=== PATIENT | female | born 1935 | race Caucasian/White ===

== ENCOUNTER 2017-03-27 12:53 | Inpatient (IN) | payer MEDICARE ==
[~2017-03-27] VITALS: Ht 172.7 cm; Wt 69.4 kg
[~2017-03-27 12:53] MED LIST: ALAVERT10 M1 PO; ASPIRIN ADULT L81 M3 PO; AXERT PO; CALCIUM 600 +600 MG PO; ELIQUIS5 MG PO; LEXAPRO10 MG PO; LIPITOR20 M1 PO; MULTI FOR HER 50+ PO; OMEGA 31000 MG PO; SYMBICORT 80-4.5MCG; TRUBIOTICS PO
--- NOTE | 2017-03-27 13:00 | NUR ---
PT TO THE ROOM VIA WC ACCOMPANIED BY FAMILY; AMBULATORY TO BED WITH STAND BY ASSIST; PT A/O X3; PT DENIES PAIN; PT C/O SOB, FEVER, COUGH SINCE 03/22/17; PT SOB, LABORED BREATHING, O2 SAT 90% RA; O2 2L APPLIED AT THIS TIME; PT ORIENTED TO ROOM AND CALL SYSTEM; TWO UNSUCCESFUL ATTEMPTS AT IV ACCESS BY THIS NURSE; #22 GAUGE STARTED IN LFA BY Ric FRIAS RN, FIRST ATTEMPT SUCCESSFUL; PT ORIENTED TO ROOM AND CALL SYSTEM; CALL HAHN WITHIN REACH; WILL CONTINUE TO MONITOR.
[2017-03-27 14:00] VITALS: BP 136/60
[2017-03-27 14:46] LABS: HEMATOCRIT 39.6 % (37.0-47.0); HEMOGLOBIN 13.3 g/dl (12.0-16.0); IMMATURE GRANULOCYTES 0.5 % (0.0-1.0); MEAN CORPUSCULAR HGB 31.9 pG CALC (26.0-32.0); MEAN CORPUSCULAR HGB CONC 33.6 g/L CALC (32.0-36.0); NEUT# 11.97 thou/uL (2.00-7.15); RED BLOOD COUNT 4.17 mill/uL (4.20-5.60); RED CELL DISTRI WIDTH 12.8 % (11.5-15.5)
[2017-03-27 15:19] LABS: ANION GAP 18 (6-22 (CALC)); BUN 16 mg/dL (8-23); BUN/CREATININE RATIO 17 (12-20 (CALC)); CALCIUM 9.3 mg/dL (8.4-10.2); CARBON DIOXIDE 22 mmol/l (22-30); CHLORIDE 102 mmol/l (95-108); CREATININE 0.9 mg/dL (0.5-1.0); GFR 60 ML/MIN (>=60 (CALC)); GFR FOR AFR.AMER. > 60 ML/MIN (>=60 (CALC)); GLUCOSE 152 mg/dL (82-115); POTASSIUM 4.1 mmol/l (3.5-5.1); SODIUM 138 mmol/l (137-146)
[2017-03-27 15:25] VITALS: BP 147/71
--- NOTE | 2017-03-27 16:04 | NUR ---
PT C/O SOB; O2 @ 2L VIA NC; O2 SAT 87-90%; TRACEY ANAND IN TO SEE PT; ORDERS RECEIVED;
[2017-03-27] MEDS ORDERED: ALMOTRIPTAN PO (17:09)
[2017-03-27] MEDS ORDERED: DUONEB NEB (17:12)
[2017-03-27] MEDS ORDERED: SINGULAIR10 MG PO (17:12)
[2017-03-27] MEDS ORDERED: VENTOLIN HFA PO (17:13)
--- NOTE | 2017-03-27 18:11 | NUR ---
PT TOLERATING DINNER WELL; SOB WITH LITTLE EXERTION; O2 2L VIA NC, O2 SAT 91-93%; FAMILY IN ROOM; CALL HAHN WITHIN REACH;
[2017-03-27 18:30] VITALS: BP 166/82
--- NOTE | 2017-03-27 19:20 | NUR ---
PT RESTING IN BED WATCHING TV. PT DENIES ANY PAIN OR DISCOMFORT. RESP EVEN AND UNLABORED, WITH O2 IN PLACE. WHEEZES THROUGHOUT NOTED. NO DISTRESS NOTED. TELE IN PLACE. ABD SOFT, BOWEL SOUNDS PRESENT. PT STATES HAD A BM YESTERDAY. PEDAL PULSES PALPATED BILAT. IV LFA PATENT, FLUSHED WITHOUT DIFFICULTY. FREQUENT ROUNDS MADE. CALL LIGHT WITHIN REACH.
[2017-03-28] VITALS (7 sets, daily range): BP systolic 117–143; BP diastolic 60–78
--- NOTE | 2017-03-28 00:45 | NUR ---
PT APPEARS TO BE SLEEPING. RESP EVEN AND UNLABORED, O2 IN PLACE. TELE IN PLACE. CALL LIGHT WITHIN REACH.
--- NOTE | 2017-03-28 05:00 | NUR ---
PT RESTING IN BED. PT DENIES ANY PAIN OR DISCOMFORT. RESP EVEN AND UNLABORED WITH O2 IN PLACE. TELE IN PLACE. NO DISTRESS NOTED. ASSESSMENT UNCHANGED. CALL LIGHT WITHIN REACH.
--- NOTE | 2017-03-28 07:00 | NUR ---
RECEIVED BEDSIDE REPORT FROM DIA HALLMAN. RESTING IN HIGH FOWLERS, RESPS EVEN AND UNLABORED ON O2 VIA NC, TELE MONITOR IN PLACE. REPORTS FEELING BETTER THIS AM. PLAN OF CARE DISCUSSED. SAFETY PRECAUTIONS REINFORCED. BED IN LOWEST POSITION WITH WHEELS LOCKED. CALL LIGHT WITHIN REACH. WILL CONTINUE TO MONITOR.
[2017-03-28 07:03] LABS: HEMATOCRIT 37.5 % (37.0-47.0); HEMOGLOBIN 12.5 g/dl (12.0-16.0); IMMATURE GRANULOCYTES 0.7 % (0.0-1.0); MEAN CELL VOLUME 94.2 fL CALC (80.0-100.0); MEAN CORPUSCULAR HGB 31.4 pG CALC (26.0-32.0); MEAN CORPUSCULAR HGB CONC 33.3 g/L CALC (32.0-36.0); NEUT# 11.19 thou/uL (2.00-7.15); RED BLOOD COUNT 3.98 mill/uL (4.20-5.60); RED CELL DISTRI WIDTH 12.5 % (11.5-15.5)
[2017-03-28 07:17] LABS: ANION GAP 16 (6-22 (CALC)); BUN 21 mg/dL (8-23); BUN/CREATININE RATIO 23 (12-20 (CALC)); CALCIUM 9.2 mg/dL (8.4-10.2); CARBON DIOXIDE 23 mmol/l (22-30); CHLORIDE 102 mmol/l (95-108); CREATININE 0.9 mg/dL (0.5-1.0); GFR 60 ML/MIN (>=60 (CALC)); GFR FOR AFR.AMER. > 60 ML/MIN (>=60 (CALC)); GLUCOSE 206 mg/dL (82-115); MAGNESIUM 2.3 mg/dL (1.6-2.3); POTASSIUM 3.9 mmol/l (3.5-5.1); SODIUM 137 mmol/l (137-146)
--- NOTE | 2017-03-28 08:40 | NUR ---
PT ASSESSMENT COMPLETED. PT ALERT AND ORIENTED X3. SPEECH IS CLEAR. FACE SYMMETRICAL. PUPILS NOT REACTED TO LIGHT DO TO HISTORY OF CATERACT SURGERY. PT HAS STRONG UPPER AND LOWER EXTREMETIES. PT HAS STRONG APICAL, RADIAL, PEDIAL PULSES. BRISK CAPILLARY REFILL. LUNG SOUNDS EXPIRATORY WHEEZING, COURSE, RESPORATION EVEN AND UNLABORED. SKIN WARM, DRY, AND INTACT. BOWEL SOUNDS PRESENT X4. PT HAS 22 GUAGE IV LAC, IV SITE HAS NO SWELLING OR REDNESS. PT HAS NO NEEDS OR CONCERNS. SR UP X4. WHEELS LOCKED, BED IN LOWEST POSITION. CALL LIGHT WITHIN REACH. WILL CONTINUE TO MONITOR.
--- NOTE | 2017-03-28 12:15 | NUR ---
SITTING ON EDGE OF BED EATING LUNCH. RESPS EVEN AND UNLABORED ON O2 VIA NC WHILE AT REST, EXERTIONAL SHORTNESS OF BREATH NOTED, TELE MONITOR IN PLACE. DENIES PAIN OR DISCOMFORT. DR WASHBURN IN TO SEE PT, NEW ORDERS RECEIVED. CALL LIGHT WITHIN REACH. WILL CONTINUE TO MONITOR.
--- NOTE | 2017-03-28 16:12 | NUR ---
RESTING IN BED WATCHING TV, RESPS EVEN AND UNLABORED ON O2 VIA NC, TELE MONITOR IN PLACE. #22 LFA INFUSING DOXYCYCLINE WITHOUT DIFFICULTY, SITE APPEARS HEALTHY. DENIES PAIN OR DISCOMFORT. CALL LIGHT WITHIN REACH. WILL CONTINUE TO MONITOR.
--- NOTE | 2017-03-28 19:00 | NUR ---
RECEIVED CHANGE OF SHIFT REPORT FROM LEO LYONS. PATIENT LYING IN BED AND APPEARS NOT TO BE IN ANY APPARENT ACUTE DISTRESS . WILL CONTINUE TO MONITOR.
--- NOTE | 2017-03-29 | NUR ---
NO APPARENT ACUTE DISTRESS NOTED. PATIENT AMBULATED TO BATH ROMM WITH STANDBY ASSIST.
--- NOTE | 2017-03-29 04:00 | NUR ---
NO APPARENT ACUTE CHANGES NOTED IN PT'S CONDITION.
[2017-03-29 05:36] LABS: HEMATOCRIT 34.6 % (37.0-47.0); HEMOGLOBIN 11.7 g/dl (12.0-16.0); IMMATURE GRANULOCYTES 3.1 % (0.0-1.0); MEAN CELL VOLUME 93.5 fL CALC (80.0-100.0); MEAN CORPUSCULAR HGB 31.6 pG CALC (26.0-32.0); MEAN CORPUSCULAR HGB CONC 33.8 g/L CALC (32.0-36.0); NEUT# 16.01 thou/uL (2.00-7.15); RED BLOOD COUNT 3.7 mill/uL (4.20-5.60); RED CELL DISTRI WIDTH 12.4 % (11.5-15.5)
[2017-03-29 05:38] VITALS: BP 178/90
[2017-03-29 06:00] LABS: ANION GAP 16 (6-22 (CALC)); BUN 23 mg/dL (8-23); BUN/CREATININE RATIO 27 (12-20 (CALC)); CALCIUM 9.1 mg/dL (8.4-10.2); CARBON DIOXIDE 22 mmol/l (22-30); CHLORIDE 102 mmol/l (95-108); CREATININE 0.8 mg/dL (0.5-1.0); GFR > 60 ML/MIN (>=60 (CALC)); GFR FOR AFR.AMER. > 60 ML/MIN (>=60 (CALC)); GLUCOSE 140 mg/dL (82-115); MAGNESIUM 2.1 mg/dL (1.6-2.3); POTASSIUM 4.5 mmol/l (3.5-5.1); SODIUM 135 mmol/l (137-146)
--- NOTE | 2017-03-29 07:00 | NUR ---
RECEIVED BEDSIDE REPORT FORM ELISE BAILEY. RESTING IN SEMI FOWLERS POSITION WITH EYES OPEN. REPORTS "NOT SLEEPING ALL NIGHT FROM COUGHING." RESPS EVEN AND UNLABORED ON O2 VIA NC, TELE MONITOR IN PLACE. NON PRODUCTIVE COUGH CONTINUES. WILL MEDICATE PER MAR. PLAN OF CARE DISCUSSED, SAFETY PRECAUTIONS REINFORCED. BED IN LOWEST POSITION WITH WHEELS LOCKED. CALL LIGHT WITHIN REACH. ENCOURAGED PT TO CALL FOR ANY NEEDS.
[2017-03-29 07:32] VITALS: BP 176/84
[2017-03-29 08:59] VITALS: BP 132/72
--- NOTE | 2017-03-29 09:40 | NUR ---
PHYSICAL THERAPY IN WITH PT.
--- NOTE | 2017-03-29 10:01 | NUR ---
SEEN PT SITTING IN THE BED WITH SOB. PT REFUSED TREATMENT. STATES SHE FEELS "SO WORN OUT" TODAY SHE WAS NOT ABLE TO GET ENOUGH SLEEP LAST NIGHT. CHECKED SPO2, WAS AT 92% WITH 2L OF O2 VIA NASAL CANNULA.
[2017-03-29 11:00] VITALS: BP 166/88
--- NOTE | 2017-03-29 12:00 | NUR ---
SITTING ON EDGE OF BED EATING LUNCH. FAMILY AT BEDSIDE. RESPS EVEN AND UNLABORED ON O2 VIA NC, EXERTIONAL SHORTNESS OF BREATH NOTED. DENIES PAIN OR DISCOMFORT. CALL LIGHT WITHIN REACH. WILL CONTINUE TO MONITOR.
--- NOTE | 2017-03-29 13:20 | NUR ---
DR WASHBURN IN WITH PT, NEW ORDERS RECEIVED.
[2017-03-29 15:57] VITALS: BP 135/74
--- NOTE | 2017-03-29 16:00 | NUR ---
IN HIGH FOWLERS. VISITOR AT BEDSIDE. REPORTS FEELING BETTER THIS AFTERNOON. CALL LIGHT WITHIN REACH.
--- NOTE | 2017-03-29 16:43 | NUR ---
Talked to patient today about her medical conditions and her medications. Pt. stated that guaifenesin helping her to loosen her mucus and reduce her cough symptoms. Pt. reported no side effects with her two antibiotics aztreonam and doxycycline. Discussed about side effects of her other medications include apixaban and methylprednisolone. Pt. reported to experience some minor hand shaking with solu-medrol but this is not her main concern. Pt. reported that her systolic bp today is lower than her regular bp, and she did not take apresoline for bp medication. Pt. said not have any side effects with other medications. Pt. did not have questions to the pharmacy at this time.
--- NOTE | 2017-03-29 19:15 | NUR ---
RECEIVED CHANGE OF SHIFT REPORT FROM LEO LYONS. PATIENT SITTING UP AT BEDSIDE AND APPEARS NOT TO BE IN ANY APPARENT ACUTE DISTRESS OR DISCOMFORT, PATIENT STATED "I'M FEELING MUCH BETTER, THEY MIGHT SEND ME HOME TOMORROW" WILL CONTINUE TO MONITOR.
[2017-03-29 20:26] LABS: URINE BILIRUBIN - DIPSTICK NEGATIVE (NEGATIVE); URINE BLOOD DIPSTICK NEGATIVE (NEGATIVE); URINE COLOR YELLOW; URINE GLUCOSE - DIPSTICK NEGATIVE (NEGATIVE); URINE KETONE NEGATIVE (NEGATIVE); URINE NITRITE - DIPSTICK NEGATIVE (Negative); URINE PH 6.5 (4.5-8.0); URINE PROTEIN - DIPSTICK 30 mg/dL (NEG-TRACE); URINE UROBILINOGEN - DIPSTICK 0.2 E.U./dL (0.2)
[2017-03-29 20:30] VITALS: BP 142/79
[2017-03-29 20:30] LABS: URINE CLARITY HAZY; URINE LEUK ESTERASE SMALL (NEGATIVE)
[2017-03-29 20:36] LABS: URINE SQUAMOUS EPITHELIAL CELL FEW EPI/hpf (0-FEW)
--- NOTE | 2017-03-29 22:00 | NUR ---
PATIENT REQUESTED NOT TO BE AWAKENED AT MIDNIGHT FOR VITAL SIGNS. PT STATED "I'M GOING HOME TOMORROW AND I WANT TO SLEEP"
--- NOTE | 2017-03-30 | NUR ---
PT RESTING QUIETLY IN BED. RESP. EVEN AND NON-LABORED. NO APPARENT ACUTE DISTRESS NOTED
[2017-03-30 04:00] VITALS: BP 173/89
--- NOTE | 2017-03-30 04:00 | NUR ---
NO APPARENT ACUTE CHANGES NOTED IN PT'S CONDITION.
[2017-03-30 06:36] LABS: HEMATOCRIT 36.7 % (37.0-47.0); MEAN CELL VOLUME 94.6 fL CALC (80.0-100.0); MEAN CORPUSCULAR HGB 30.9 pG CALC (26.0-32.0); MEAN CORPUSCULAR HGB CONC 32.7 g/L CALC (32.0-36.0); NEUT# 14.46 thou/uL (2.00-7.15); RED BLOOD COUNT 3.88 mill/uL (4.20-5.60); RED CELL DISTRI WIDTH 12.8 % (11.5-15.5)
[2017-03-30 06:55] LABS: ANION GAP 16 (6-22 (CALC)); BUN 22 mg/dL (8-23); BUN/CREATININE RATIO 26 (12-20 (CALC)); CALCIUM 9.3 mg/dL (8.4-10.2); CARBON DIOXIDE 25 mmol/l (22-30); CHLORIDE 104 mmol/l (95-108); CREATININE 0.8 mg/dL (0.5-1.0); GFR > 60 ML/MIN (>=60 (CALC)); GFR FOR AFR.AMER. > 60 ML/MIN (>=60 (CALC)); GLUCOSE 94 mg/dL (82-115); MAGNESIUM 2.1 mg/dL (1.6-2.3); POTASSIUM 4.8 mmol/l (3.5-5.1); SODIUM 140 mmol/l (137-146)
--- NOTE | 2017-03-30 07:00 | NUR ---
SHIFT CHANGE REPORT FROM JENNY OLIVARES SLEEPING, BREATHING EVEN AND NON-LABORED, NO SIGN DISCOMFORT, AWAKENED TO LIGHT VERBAL STIMULI, ORIENTED, O2 @ 2.5L VIA NC IN PLACE, NO C/O DISCOMFORT, CALL HAHN IN REACH.
[2017-03-30 07:01] LABS: IMMATURE GRANULOCYTES 9.3 % (0.0-1.0)
[2017-03-30 09:16] VITALS: BP 132/67
--- NOTE | 2017-03-30 11:25 | NUR ---
Pt. found sitting in bed and in agreement to participate with physical therapy for gait training, gait belt and non skid socks applied prior to doing so. Pt. ambulated x25 feet in room using RW and with CGA x1 on room air. Steady gait observed O2 sats dropped from 93% to 88%. Pt. took a seated break, portable O2 was obtained and set at 2L via NC. Pt. then ambulated x75 feet using RW and potable O2 with light CGA x1. Pt. returned to sitting in bed O2 sats maintained above 90% with with O2 at 2L. Call button reviewed and left within reach, bedside table also left within reach. Pt. left resting comfortably without complaints.
--- NOTE | 2017-03-30 12:00 | NUR ---
AMBULATES IN ROOM AND TO BR INDEPENDENTLY, SITTING UP IN RECLINER AT THIS TIME, NO C/O DISCOMFORT, WILL CONTINUE TO MONITOR.
[2017-03-30] MEDS ORDERED: PREDNISONE10 MG PO (15:25)
[2017-03-30] MEDS ORDERED: DOXYCYCL HYC100 MG PO (15:25)
--- NOTE | 2017-03-30 15:56 | NUR ---
SITTING ON SIDE OF BED AT THIS ITME, AMBULATED HALLWAY WITH NURSING STAFF FOR O2 SATURATION TEST, MAINTAINED LEVELS ABOVE 90%, MEDICAL STAFF INFORMED FOR D/C PLANS.
[2017-03-30 16:00] VITALS: BP 134/74
--- NOTE | 2017-03-30 16:29 | NUR ---
Talked to patient before doctor signed a discharge order. Discussed with her medications that she is on and side effects with these medications. Pt. reported not experience any side effects with her Eliquis for atrial fibrillation. Pt. said her cough symptoms are improving with guaifenesin. She complained about temazepam that did not help her insomnia made her throwing- up and wake up in middle of the night yesterday. Pt. reported not experience any side effects with other medications. She has no diarrhea problems with aztreonam and doxycycline and has no other side effects. Pt. has no other questions to pharmacy at this time.
--- NOTE | 2017-03-30 17:51 | NUR ---
Discharge instructions given. Patient verbalizes understanding of same. Discharged in stable condition via Wheelchair to Home with family. All belongings sent with pt.
== END 2017-03-30 17:50 | disposition home or self-care (01) | DRG 190 ==
LOC: MS2 12:53
PROVIDERS: Nurse Practitioner Family; ADMIT Internal Medicine; ATTEND Internal Medicine
DX: J44.0 Chronic obstructive pulmonary disease with (acute) lower respiratory infection (principal); J18.9 Pneumonia, unspecified organism; J44.1 Chronic obstructive pulmonary disease with (acute) exacerbation; E78.5 Hyperlipidemia, unspecified; I10 Essential (primary) hypertension; K58.9 Irritable bowel syndrome, unspecified; I48.2 Chronic atrial fibrillation; F17.210 Nicotine dependence, cigarettes, uncomplicated; Z79.01 Long term (current) use of anticoagulants; Z88.8 Allergy status to other drugs, medicaments and biological substances

== ENCOUNTER 2017-11-14 05:59 | Day surgery (SDC) | payer MEDICARE ==
[~2017-11-14] VITALS: Ht 172.7 cm; Wt 68.5 kg
[~2017-11-14 05:59] MED LIST changes: +ALMOTRIPTAN PO; +CLARITIN10 M2 PO; +DOXYCYCL HYC100 MG PO; +DUONEB NEB; +PREDNISONE10 MG PO; +PREMARIN0.625 MG/G; +SINGULAIR10 MG PO; +VENTOLIN HFA PO; +VERAPAMIL180 M1 PO
[2017-11-14 08:11] VITALS: BP 124/70
== END 2017-11-14 08:55 | disposition home or self-care (01) ==
LOC: ORM 05:59
PROVIDERS: ATTEND Anesthesiology Pain Medicine
PROC: 3E0R33Z Introduction of Anti-inflammatory into Spinal Canal, Percutaneous Approach (ICD-10-PCS; principal; 2017-11-14)
PROC: 3E0R3BZ Introduction of Anesthetic Agent into Spinal Canal, Percutaneous Approach (ICD-10-PCS; 2017-11-14)
DX: M46.1 Sacroiliitis, not elsewhere classified (principal)

== ENCOUNTER 2017-11-28 07:29 | Day surgery (SDC) | payer MEDICARE ==
[~2017-11-28] VITALS: Ht 172.7 cm; Wt 68.0 kg
[2017-11-28 10:14] VITALS: BP 198/88
== END 2017-11-28 10:06 | disposition home or self-care (01) ==
LOC: ORM 07:29
PROVIDERS: ATTEND Anesthesiology Pain Medicine
PROC: 3E0R33Z Introduction of Anti-inflammatory into Spinal Canal, Percutaneous Approach (ICD-10-PCS; principal; 2017-11-28)
PROC: 3E0R3BZ Introduction of Anesthetic Agent into Spinal Canal, Percutaneous Approach (ICD-10-PCS; 2017-11-28)
DX: M46.1 Sacroiliitis, not elsewhere classified (principal)

== ENCOUNTER → 2018-05-15 | Outpatient (REF) ==
[~2018-05-15] MED LIST changes: +LIDODERM5 % EX; +TRAMADOL HCL50 MG PO
== END | disposition home or self-care (01) | DRG 642 ==
LOC: LAB 09:51
PROVIDERS: ATTEND Nurse Practitioner
DX: E78.49 Other hyperlipidemia (principal); I10 Essential (primary) hypertension

== ENCOUNTER 2022-03-07 14:56 | Emergency (ER) | payer MEDICARE ==
[~2022-03-07] VITALS: Ht 172.7 cm; Wt 72.0 kg
[2022-03-07] VITALS (17 sets, daily range): BP systolic 160–243; BP diastolic 79–119
[~2022-03-07 14:56] MED LIST changes: +AXERT; +FLECAINIDE50 MG PO; +FLONASE AL50 MCG/ACT; +MAGNESIUM CITRATE; +PROAIR HFA IN; +PROBIOTI2; +PROLIA60 MG/ML SC; +SPIRIVA HANDIHALER IN
[2022-03-07] MEDS ORDERED: DILAUDID2 MG PO (18:49)
[2022-03-07] MEDS ORDERED: PREDNISONE10 MG PO (18:49)
[2022-03-07] MEDS ORDERED: METHOCARBAMOL500 MG PO (18:49)
== END 2022-03-07 19:13 | disposition home or self-care (01) ==
LOC: ED 14:56
DX: M47.26 Other spondylosis with radiculopathy, lumbar region (principal); I10 Essential (primary) hypertension; J43.9 Emphysema, unspecified; E78.00 Pure hypercholesterolemia, unspecified; M81.0 Age-related osteoporosis without current pathological fracture

== ENCOUNTER 2022-03-19 17:42 | Emergency (ER) | payer MEDICARE ==
[~2022-03-19] VITALS: Ht 172.7 cm; Wt 71.4 kg
[2022-03-19] VITALS (12 sets, daily range): BP systolic 153–195; BP diastolic 88–103
[~2022-03-19 17:42] MED LIST changes: +DILAUDID2 MG PO; +METHOCARBAMOL500 MG PO
[2022-03-19] MEDS ORDERED: DILAUDID2 MG PO (22:24)
== END 2022-03-19 22:42 | disposition home or self-care (01) ==
LOC: ED 17:42
DX: M54.16 Radiculopathy, lumbar region (principal); I10 Essential (primary) hypertension; J43.9 Emphysema, unspecified; E78.00 Pure hypercholesterolemia, unspecified

== ENCOUNTER 2022-04-13 17:50 | Observation (INO) | payer MEDICARE ==
[~2022-04-13] VITALS: Ht 172.7 cm; Wt 77.0 kg
[2022-04-13] VITALS (8 sets, daily range): BP systolic 128–180; BP diastolic 76–100
[2022-04-13 18:18] LABS: BASO% 0.4 % (0-3); EOS% 2.9 % (0-8); HEMATOCRIT 37.4 % (37.0-47.0); HEMOGLOBIN 11.8 g/dl (12.0-16.0); IMMATURE GRANULOCYTES 0.4 % (0.0-5.0); LYMPH% 21.7 % (15-41); MEAN CELL VOLUME 94.7 fL CALC (80.0-100.0); MEAN CORPUSCULAR HGB 29.9 pG CALC (26.0-32.0); MEAN CORPUSCULAR HGB CONC 31.6 g/dL CAL (32.0-36.0); MONO% 12.6 % (2-13); NEUT# 4.48 thou/uL (2.00-7.15); RED BLOOD COUNT 3.95 mill/uL (4.20-5.60); RED CELL DISTRI WIDTH 13.5 % (11.5-15.5)
[2022-04-13 18:31] LABS: ALBUMIN 3.4 g/dL (3.2-5.0); BILIRUBIN, TOTAL 0.4 mg/dL (0.02-1.3); CREATININE 1.1 mg/dL (0.5-1.0); POTASSIUM 3.9 mmol/l (3.5-5.1); TOTAL PROTEIN 6.4 g/dL (6.3-8.2)
[2022-04-13] MEDS ORDERED: CARISOPRODOL350 MG PO (21:01)
[2022-04-13] MEDS ORDERED: PREGABALIN75 MG PO (21:02)
[2022-04-13] MEDS ORDERED: TRAMADOL HCL50 MG PO (21:16)
[2022-04-14] VITALS (10 sets, daily range): BP systolic 125–175; BP diastolic 70–85
[2022-04-14 05:18] LABS: BASO% 0.2 % (0-3); HEMATOCRIT 37.3 % (37.0-47.0); IMMATURE GRANULOCYTES 0.4 % (0.0-5.0); LYMPH% 14.6 % (15-41); MEAN CELL VOLUME 94.2 fL CALC (80.0-100.0); MEAN CORPUSCULAR HGB 30.3 pG CALC (26.0-32.0); MEAN CORPUSCULAR HGB CONC 32.2 g/dL CAL (32.0-36.0); MONO% 1.1 % (2-13); NEUT# 3.9 thou/uL (2.00-7.15); NEUT% 83.7 % (42-76); RED BLOOD COUNT 3.96 mill/uL (4.20-5.60); RED CELL DISTRI WIDTH 13.1 % (11.5-15.5)
[2022-04-14 05:37] LABS: ALBUMIN 3.3 g/dL (3.2-5.0); ALKALINE PHOSPHATASE 87 u/l (38-126); BILIRUBIN, TOTAL 0.3 mg/dL (0.02-1.3); BUN 18 mg/dL (8-23); BUN/CREATININE RATIO 18 (12-20 (CALC)); CARBON DIOXIDE 27 mmol/l (22-30); CHLORIDE 102 mmol/l (95-108); GFR FOR AFR.AMER. > 60 ML/MIN (>=60 (CALC)); GFR OTHER RACES 53 ML/MIN (>=60 (CALC)); SGOT/AST 18 u/l (9-36); SODIUM 134 mmol/l (137-146); TOTAL PROTEIN 5.9 g/dL (6.3-8.2)
[2022-04-14 05:39] LABS: ANION GAP 10 (6-22 (CALC)); POTASSIUM 4.6 mmol/l (3.5-5.1)
[2022-04-14 23:11] LABS: URINE BILIRUBIN - DIPSTICK NEGATIVE (NEGATIVE); URINE BLOOD DIPSTICK NEGATIVE (NEGATIVE); URINE COLOR YELLOW; URINE GLUCOSE - DIPSTICK NEGATIVE (NEGATIVE); URINE KETONE NEGATIVE (NEGATIVE); URINE LEUK ESTERASE NEGATIVE (NEGATIVE); URINE PH 5.5 (4.5-8.0); URINE PROTEIN - DIPSTICK NEGATIVE (NEG-TRACE); URINE SPECIFIC GRAVITY >=1.030; URINE UROBILINOGEN - DIPSTICK 0.2 E.U./dL (0.2)
[2022-04-14 23:13] LABS: URINE NITRITE - DIPSTICK NEGATIVE (Negative)
[2022-04-15] VITALS (9 sets, daily range): BP systolic 127–156; BP diastolic 69–86
[2022-04-15 04:39] LABS: BASO% 0.1 % (0-3); HEMOGLOBIN 11.6 g/dl (12.0-16.0); IMMATURE GRANULOCYTES 0.3 % (0.0-5.0); LYMPH% 8.5 % (15-41); MEAN CELL VOLUME 92.3 fL CALC (80.0-100.0); MEAN CORPUSCULAR HGB 29.7 pG CALC (26.0-32.0); MEAN CORPUSCULAR HGB CONC 32.2 g/dL CAL (32.0-36.0); MONO% 2.3 % (2-13); NEUT# 10.75 thou/uL (2.00-7.15); NEUT% 88.8 % (42-76); RED BLOOD COUNT 3.9 mill/uL (4.20-5.60); RED CELL DISTRI WIDTH 13.1 % (11.5-15.5)
[2022-04-15 04:48] LABS: ALBUMIN 3.4 g/dL (3.2-5.0); BILIRUBIN, TOTAL 0.2 mg/dL (0.02-1.3); CREATININE 1.1 mg/dL (0.5-1.0); POTASSIUM 4.9 mmol/l (3.5-5.1); TOTAL PROTEIN 6.2 g/dL (6.3-8.2)
[2022-04-16] VITALS (8 sets, daily range): BP systolic 127–163; BP diastolic 66–85
[2022-04-16 04:56] LABS: HEMATOCRIT 35.2 % (37.0-47.0); HEMOGLOBIN 11.1 g/dl (12.0-16.0); MEAN CELL VOLUME 93.4 fL CALC (80.0-100.0); MEAN CORPUSCULAR HGB 29.4 pG CALC (26.0-32.0); MEAN CORPUSCULAR HGB CONC 31.5 g/dL CAL (32.0-36.0); RED BLOOD COUNT 3.77 mill/uL (4.20-5.60); RED CELL DISTRI WIDTH 13.1 % (11.5-15.5)
[2022-04-16 05:09] LABS: ALBUMIN 3.4 g/dL (3.2-5.0); CREATININE 1.2 mg/dL (0.5-1.0); MAGNESIUM 2.2 mg/dL (1.6-2.3); TOTAL PROTEIN 6.1 g/dL (6.3-8.2)
[2022-04-16 05:16] LABS: BILIRUBIN, TOTAL 0.1 mg/dL (0.02-1.3); POTASSIUM 5.2 mmol/l (3.5-5.1)
[2022-04-17 01:57] VITALS: BP 165/91
[2022-04-17 04:57] LABS: HEMOGLOBIN 10.6 g/dl (12.0-16.0); MEAN CELL VOLUME 93.5 fL CALC (80.0-100.0); MEAN CORPUSCULAR HGB CONC 32.1 g/dL CAL (32.0-36.0); RED BLOOD COUNT 3.53 mill/uL (4.20-5.60)
[2022-04-17 05:09] VITALS: BP 164/85
[2022-04-17 05:12] LABS: ALKALINE PHOSPHATASE 67 u/l (38-126); ANION GAP 7 (6-22 (CALC)); BILIRUBIN, TOTAL 0.2 mg/dL (0.02-1.3); BUN 34 mg/dL (8-23); BUN/CREATININE RATIO 35 (12-20 (CALC)); CARBON DIOXIDE 27 mmol/l (22-30); CHLORIDE 103 mmol/l (95-108); GFR FOR AFR.AMER. > 60 ML/MIN (>=60 (CALC)); GFR OTHER RACES 53 ML/MIN (>=60 (CALC)); MAGNESIUM 2.1 mg/dL (1.6-2.3); POTASSIUM 5.1 mmol/l (3.5-5.1); SGOT/AST 17 u/l (9-36); SODIUM 132 mmol/l (137-146); TOTAL PROTEIN 5.4 g/dL (6.3-8.2)
[2022-04-17 07:06] VITALS: BP 162/82
[2022-04-17 07:08] VITALS: BP 162/82
[2022-04-17] MEDS ORDERED: DILAUDID2 MG PO (10:48)
[2022-04-17] MEDS ORDERED: PREGABALIN75 MG PO (10:48)
[2022-04-17] MEDS ORDERED: PREDNISONE10 MG PO (10:48)
[2022-04-17 10:51] VITALS: BP 137/78
== END 2022-04-17 14:29 ==
LOC: ED 17:50 → ED-I 20:30 → ED 20:43 → MS2 20:44
PROVIDERS: Emergency Medicine; Nurse Practitioner Family; ADMIT Internal Medicine; ATTEND Internal Medicine
DX: M80.08XA Age-related osteoporosis with current pathological fracture, vertebra(e), initial encounter for fracture (principal); I10 Essential (primary) hypertension; J43.9 Emphysema, unspecified; I48.0 Paroxysmal atrial fibrillation; K58.2 Mixed irritable bowel syndrome; E78.00 Pure hypercholesterolemia, unspecified; R33.9 Retention of urine, unspecified; Z60.2 Problems related to living alone; Z88.3 Allergy status to other anti-infective agents; Z98.1 Arthrodesis status; Z96.82 Presence of neurostimulator; Z79.01 Long term (current) use of anticoagulants; Z20.822 Contact with and (suspected) exposure to COVID-19
CPT/HCPCS: J1650

== ENCOUNTER 2022-05-14 15:09 | Inpatient (IN) | payer MEDICARE ==
[~2022-05-14] VITALS: Ht 172.7 cm; Wt 75.3 kg
[~2022-05-14 15:09] MED LIST changes: +CARISOPRODOL350 MG PO; +PREGABALIN75 MG PO
--- NOTE | 2022-05-14 15:09 | NUR ---
PT ARRIVED VIA EMS, C/O SOB
[2022-05-14 15:16] VITALS: BP 119/63
[2022-05-14 15:30] VITALS: BP 99/57
[2022-05-14 16:00] VITALS: BP 105/57
[2022-05-14] MEDS ORDERED: BREO ELLIPTA 101 INH (16:20)
[2022-05-14] MEDS ORDERED: BUDESONID1 IN (16:54)
--- NOTE | 2022-05-14 16:54 | NUR ---
PT IN ROOM WITH VISITOR, VISITOR LEFT ROOM TO ALERT NURSE THAT PT HAD TO GO TO THE BATHROOM. NURSE WHEELED PT TO BATHROOM, PT HAD A BOWEL MOVEMENT IN UNDERWEAR AND BEDDING. REPLACED UNDERWEAR WITH MESH UNDERWEAR. PT HAD NONBLANCHING WOUND TO BUTTOCKS AND BLEEDING AFTER BEING CLEANED WITH BOWEL MOVEMENT. PT BED CLEANED WITH NEW LINENS, PT PLACED ON NEW NC ON 6L NC.
[2022-05-14 17:00] VITALS: BP 117/62
--- NOTE | 2022-05-14 17:04 | NUR ---
PLACED BEDSIDE COMMODE WITH PT, PT ON BEDSIDE COMMODE NOW WITH VISITOR
[2022-05-14 17:30] VITALS: BP 111/62
[2022-05-14 18:05] LABS: BASO% 0.1 % (0-3); IMMATURE GRANULOCYTES 0.5 % (0.0-5.0); LYMPH% 3.2 % (15-41); MEAN CELL VOLUME 92.7 fL CALC (80.0-100.0); MEAN CORPUSCULAR HGB 28.4 pG CALC (26.0-32.0); MEAN CORPUSCULAR HGB CONC 30.7 g/dL CAL (32.0-36.0); NEUT# 17.22 thou/uL (2.00-7.15); NEUT% 93.2 % (42-76); RED BLOOD COUNT 4.22 mill/uL (4.20-5.60); RED CELL DISTRI WIDTH 14.6 % (11.5-15.5)
[2022-05-14 18:14] LABS: HEMATOCRIT 39.1 % (37.0-47.0)
[2022-05-14 18:20] LABS: CREATININE 1.2 mg/dL (0.5-1.0)
[2022-05-14 18:21] LABS: ALBUMIN 4.1 g/dL (3.2-5.0); BILIRUBIN, TOTAL 1.1 mg/dL (0.02-1.3); POTASSIUM 3.7 mmol/l (3.5-5.1); TOTAL PROTEIN 7.2 g/dL (6.3-8.2)
[2022-05-14] MEDS ORDERED: CALCIUM 600600 MG (18:22)
[2022-05-14] MEDS ORDERED: DOXYCYCLINE100 MG (18:22)
[2022-05-14] MEDS ORDERED: FERROUS SULF325 M2 PO (18:22)
[2022-05-14] MEDS ORDERED: FLECAINIDE50 MG PO (18:23)
[2022-05-14] MEDS ORDERED: LASIX 40 MG TAB40 MG PO (18:23)
[2022-05-14] MEDS ORDERED: HYDROMORPHONE HC2 MG PO (18:24)
[2022-05-14] MEDS ORDERED: IPRATROPIU0.5 MG/3 M IN (18:25)
[2022-05-14 18:29] LABS: INTERNATIONAL NORMALIZED RATIO 1.1 RATIO (0.7-1.3); PROTHROMBIN TIME 10.6 SECONDS (9.0-12.5)
[2022-05-14] MEDS ORDERED: LISINOPRIL20 M1 PO (18:39)
[2022-05-14] MEDS ORDERED: [UNRECOGNIZED DRUG - OTHER] (18:41)
[2022-05-14] MEDS ORDERED: MAGNESIUM CITR100 M1 (18:41)
--- NOTE | 2022-05-14 20:18 | NUR ---
PT IN ROOM. NO DISTRESS NOTED, PT VISITOR WENT TO GO GET FOOD FOR PT
--- NOTE | 2022-05-14 21:55 | NUR ---
REPORT GIVEN TO LEO PETERS. CARE RELINQUISHED
[2022-05-14 23:37] VITALS: BP 143/102
--- NOTE | 2022-05-14 23:41 | NUR ---
PT ARRIVED TO UNIT VIA STRETCHER - UPON ARRIVAL PT TO BE FOUND ALERT TO SELF - BOTTOM BLEEDING FROM EXCORIATION, PT SITTING IN OLD STOOL AND URINE - PT CLEANED BY CORRESPONDENCE REPRESENTATIVE AND NURSE AND BARRIER CREAM APPLIED WELL A BRIEF - PT BP IS ELEVATED - WILL GIVE AM DOSE OF LISINOPRIL EARLY TO RECTIFY PT HAS NO PRN ORDERED - PT DENIES ANY NEEDS OTHER THAN SLEEP - WILL ATTEMPT ADMSSION BUT PT IS A POOR HISTORIAN SHE CURRENTLY HAS NO IDEA WHERE SHE IS - PT GIVEN CALL LIGHT - FALL PRECAUTIONS IN PLACE - WILL MONITOR
[2022-05-15] VITALS (8 sets, daily range): BP systolic 93–136; BP diastolic 41–75
--- NOTE | 2022-05-15 00:05 | NUR ---
UNABLE TO GIVE AM DOSE LISINOPRIL IT IS NOT AVAILABLE TO PULL - NOTIFIED DERAY OF NEED FOR PRN MED FOR BP
--- NOTE | 2022-05-15 00:24 | NUR ---
RECEIVED ORDERS FROM MD FOLLOWS, HYDRALAZINE 10MG Q6H PRN FOR SYSTOLIC >160 AND DIASTOLIC >90 - WILL FOLLOW PARAMETERS
--- NOTE | 2022-05-15 04:19 | NUR ---
PT OBSERVED IN BED WITH EYES CLOSED - CALL LIGHT IN REACH
[2022-05-15 05:09] LABS: BASO% 0.1 % (0-3); HEMOGLOBIN 10.2 g/dl (12.0-16.0); IMMATURE GRANULOCYTES 0.5 % (0.0-5.0); LYMPH% 7.8 % (15-41); MEAN CELL VOLUME 93.1 fL CALC (80.0-100.0); MEAN CORPUSCULAR HGB 29.5 pG CALC (26.0-32.0); MEAN CORPUSCULAR HGB CONC 31.7 g/dL CAL (32.0-36.0); MONO% 3.5 % (2-13); NEUT# 13.18 thou/uL (2.00-7.15); NEUT% 88.1 % (42-76); RED BLOOD COUNT 3.46 mill/uL (4.20-5.60); RED CELL DISTRI WIDTH 14.5 % (11.5-15.5)
[2022-05-15 05:13] LABS: HEMATOCRIT 32.2 % (37.0-47.0)
[2022-05-15 05:23] LABS: CREATININE 1.1 mg/dL (0.5-1.0)
[2022-05-15 05:28] LABS: ALBUMIN 2.9 g/dL (3.2-5.0); BILIRUBIN, TOTAL 0.6 mg/dL (0.02-1.3); TOTAL PROTEIN 5.2 g/dL (6.3-8.2)
--- NOTE | 2022-05-15 09:00 | NUR ---
RN AT BEDSIDE FOR SHIFT HANDOFF/ASSESSMENT. PT A/O X2 WITH INTERMITTENT CONFUSION. NO ACUTE DISTRESS NOTED AT THIS TIME. PLAN OF CARE REVIEWED WITH PT WITH EXTENSIVE MEDICATION EDUCATION PROVIDED. PT VERBALIZES UNDERSTANDING. CALL LIGHT AND PERSONAL BELONGINGS WITHIN REACH; WILL CONTINUE TO MONITOR.
--- NOTE | 2022-05-15 19:44 | NUR ---
PATIENT STATED FEELING BETTER REPORTS NO PAIN. UPDATED SON ON PATIENTS CONDITION WITH PATIENT'S CONSENT.
--- NOTE | 2022-05-15 20:00 | NUR ---
RECIEVED REPORT FROM NURSE ENRIQUE. PATIENT ALERT ORIENTED, HAVING NONE PRODUCTIVE COUGH HOOKED ON TELEMETRY SR WITH 1ST [id number], ON CONTINUOUS O2 @ 3LPM VIA NC, NOTED DIMINISHES LUNG SOUNDS ON BASES, BLE EDEMA +2 WEAK PEDAL PULSE CALL LIGHT IN REACH.
--- NOTE | 2022-05-16 | NUR ---
PATIENT RESTING IN BED, REMAINS ON O2 @ 3LPM VIA NC, DUE SOLU MEDROL GIVEN.
--- NOTE | 2022-05-16 04:00 | NUR ---
PATEINT INCONTINENT OF BOTH BOWEL AND BLADDER, PERINEAL CARE DONE, NEW PUREWICK IN PLACE, BARRIER CREAM APPLIED TO BUTTOCKS.
[2022-05-16 04:13] VITALS: BP 125/76
[2022-05-16 05:33] LABS: BASO% 0.1 % (0-3); HEMATOCRIT 32.7 % (37.0-47.0); HEMOGLOBIN 10.1 g/dl (12.0-16.0); IMMATURE GRANULOCYTES 1.4 % (0.0-5.0); LYMPH% 4.9 % (15-41); MEAN CELL VOLUME 92.9 fL CALC (80.0-100.0); MEAN CORPUSCULAR HGB 28.7 pG CALC (26.0-32.0); MEAN CORPUSCULAR HGB CONC 30.9 g/dL CAL (32.0-36.0); MONO% 3.2 % (2-13); NEUT# 14.39 thou/uL (2.00-7.15); NEUT% 90.4 % (42-76); RED BLOOD COUNT 3.52 mill/uL (4.20-5.60); RED CELL DISTRI WIDTH 14.4 % (11.5-15.5)
[2022-05-16 05:57] LABS: ALBUMIN 3.1 g/dL (3.2-5.0); CREATININE 1.4 mg/dL (0.5-1.0); MAGNESIUM 2.2 mg/dL (1.6-2.3); POTASSIUM 3.8 mmol/l (3.5-5.1); TOTAL PROTEIN 5.9 g/dL (6.3-8.2)
[2022-05-16 06:00] LABS: BILIRUBIN, TOTAL 0.3 mg/dL (0.02-1.3)
[2022-05-16 06:38] VITALS: BP 140/72
--- NOTE | 2022-05-16 07:39 | NUR ---
PT RESTING COMFORTABLY. VITAL SIGNS STABLE. NO FURTHER NEEDS AT THIS TIME.
[2022-05-16 10:26] VITALS: BP 109/63
--- NOTE | 2022-05-16 12:18 | NUR ---
PT RESTING COMFORTABLY IN CHAIR. VITAL SIGNS STABLE. NO FURTHER NEEDS AT THIS TIME.
[2022-05-16 15:04] VITALS: BP 113/56
[2022-05-16 19:12] VITALS: BP 112/52
--- NOTE | 2022-05-16 20:20 | NUR ---
RECEIVED REPORT FROM LEO DAY. PT RESTING ON BED HIGH FOWLERS; A&O X3. O2 @ 3L VIA NASAL CANNULA IN PLACE. TELEMETRY IN PLACE WITH LAST REAFDING SR-65. IV SITE HEALTHY AND PATENT. ACTIVE BOWEL SOUNDS X4 QUADRANTS. PT INCONTINENT; PUREWICK IN PLACE. SAFETY PRECAUTIONS IN PLACE WITH CALL LIGHT IN REACH.
[2022-05-17 00:01] VITALS: BP 122/70
--- NOTE | 2022-05-17 00:15 | NUR ---
PT RESTING ON BED WITH EYES CLOSED. NO DISTRESS OR PAIN NOTED. VS COMPLETED. NO VOICED NEEDS AT THIS TIME. SAFETY PRECAUTIONS IN PLACE WITH CALL LIGHT IN REACH.
--- NOTE | 2022-05-17 03:59 | NUR ---
PT RESTING WITH EYES CLOSED, SUPINE POSITIONED. PT REPOSITIONED. NO DISTRESS OR PAIN NOTED. NO VOICED NEEDS AT THIS TIME. SAFETY PRECAUTIONS IN PLACE WITH CALL LIGHT IN REACH.
[2022-05-17 04:29] VITALS: BP 152/91
--- NOTE | 2022-05-17 06:22 | NUR ---
ASSOCIATE DIRECTOR CAREER SERVICES UNABLE TO DRAW PT; LAB WILL COME BACK AND TRY LATER THIS AM.
--- NOTE | 2022-05-17 07:15 | NUR ---
REPORT FROM KORI HALLMAN. ASSUMED PT CARE.
--- NOTE | 2022-05-17 07:20 | NUR ---
AFTER MED NEB NOTED PT SAT 86% ON 3L INCREASED TO 5L NC SAT 91% NOTIFIED RN
[2022-05-17 07:51] VITALS: BP 167/89
[2022-05-17 08:54] LABS: BASO% 0.1 % (0-3); HEMATOCRIT 38.3 % (37.0-47.0); HEMOGLOBIN 11.9 g/dl (12.0-16.0); IMMATURE GRANULOCYTES 0.9 % (0.0-5.0); LYMPH% 3.9 % (15-41); MEAN CORPUSCULAR HGB 28.9 pG CALC (26.0-32.0); MEAN CORPUSCULAR HGB CONC 31.1 g/dL CAL (32.0-36.0); MONO% 2.8 % (2-13); NEUT# 13.64 thou/uL (2.00-7.15); NEUT% 92.3 % (42-76); RED BLOOD COUNT 4.12 mill/uL (4.20-5.60); RED CELL DISTRI WIDTH 14.4 % (11.5-15.5)
--- NOTE | 2022-05-17 08:55 | NUR ---
O2 SAT 92% ON 5L/M VIA NC.
--- NOTE | 2022-05-17 09:01 | NUR ---
RADHA BALLARDP AT BEDSIDE TO DISCUSS POC.
[2022-05-17 09:11] LABS: ALBUMIN 3.7 g/dL (3.2-5.0); CREATININE 1.4 mg/dL (0.5-1.0); MAGNESIUM 2.2 mg/dL (1.6-2.3); POTASSIUM 3.7 mmol/l (3.5-5.1); TOTAL PROTEIN 6.6 g/dL (6.3-8.2)
[2022-05-17 09:14] LABS: BILIRUBIN, TOTAL 0.5 mg/dL (0.02-1.3)
[2022-05-17 11:01] VITALS: BP 111/61
--- NOTE | 2022-05-17 11:24 | NUR ---
PT TO CT VIA WHEELCHAIR ACCOMPAINED BY VOLUNTEER STAFF.
--- NOTE | 2022-05-17 11:41 | NUR ---
PT RETURNED FROM CT VIA WHEELCHAIR IN STABLE CONDITION.
--- NOTE | 2022-05-17 15:09 | NUR ---
PT SITTING UP IN CHAIR. NO APPARENT DISTRESS NOTED. O2 @ 5L/M VIA NC, SAT 94%. CALL LIGHT WITHIN REACH. WILL CONTINUE TO MONITOR.
[2022-05-17 15:33] VITALS: BP 119/62
[2022-05-17 19:36] VITALS: BP 114/55
--- NOTE | 2022-05-17 19:42 | NUR ---
RECIEVED REPORT FROM DAYSHIFT NURSE. PT NOTED LAYING HIGH FOWLERS IN BED, A/OX3. COMPLAINS OF HEADACHE AT THIS TIME. VISITOR AT BEDSIDE WITH PT. NASAL CANNULA IN PLACE, COUHG PRESENT AND WHEEZING AUDIBLE IN LUNGS. EDUCATED PT ON PLAN OF CARE FOR TONIGHT AND WILL FOLLOW UP WITH MEDICATION FOR HEADACHE. FABIENNE LIGHT WITHIN REACH AND SAFETY PRECAUTIONS IN PLACE.
[2022-05-18] VITALS (45 sets, daily range): BP systolic 93–145; BP diastolic 45–96
--- NOTE | 2022-05-18 | NUR ---
PT LAYING FOWLERS IN BED. RESPIRATORY IN ROOM WITH PT. PT DENIES ANY PAIN AT THIS TIME. CALL LIGHT WITHIN REACH AND SAFETY PRECAUTIONS IN PLACE.
--- NOTE | 2022-05-18 04:19 | NUR ---
PT LAYING IN BED SLEEPING. NASAL CANNULA IN PLACE. NO S/S OF DISTRESS. CALL LIGHT WITHIN REACH AND SAFETY PRECAUTIONS IN PLACE.
--- NOTE | 2022-05-18 04:31 | NUR ---
Hearth Feeder checked pt's vitals at this time. Pt o2 sat would not go up from 86%. Hearth Feeder changed pulse ox to disposable and placed on a warm finger. pt o2 stayed at 86% nurse notified. boosted pt at this time in bed pt o2 sat staying in high 80's. nurse notified rt to come evaluate the pt. @509 pt o2 stat up to 88% and holding. pt is not short of breath or in any discomfort.
--- NOTE | 2022-05-18 04:49 | NUR ---
PT O2 SATURATION WAS 86% ON 5L NC. UPPED O2 BY 1L TO 6L O2. PT O2 SAT WENT TO 87%. PT DENIES ANY SOB OR DISTRESS. NO S/S OF DISTRESS OR HYPOXIA. SPOKE WITH RESPIRATORY THERAPY OF PT STATUS. RESPIRATORY THERAPIST SAID PT IS DUE FOR BREATHING TREATMENT TO HELP IMPROVE O2 SATURATION. AWAITING INTERVENTION. CONTINUING TO MONITOR PT O2 SATURATIONS.
--- NOTE | 2022-05-18 05:36 | NUR ---
PT RECEIVED BREATHING TREATMENT BUT O2 SATS STILL REMAINED IN 86-87%. RESPIRATORY THERAPY PLACE PT ON 8L NC HIGH FLOW O2. WILL CONTINUE TO MONITOR O2 SATS.
[2022-05-18 05:53] LABS: BASO% 0.1 % (0-3); HEMATOCRIT 32.9 % (37.0-47.0); HEMOGLOBIN 10.2 g/dl (12.0-16.0); IMMATURE GRANULOCYTES 1.7 % (0.0-5.0); LYMPH% 5.8 % (15-41); MEAN CELL VOLUME 93.2 fL CALC (80.0-100.0); MEAN CORPUSCULAR HGB 28.9 pG CALC (26.0-32.0); MONO% 5.7 % (2-13); NEUT# 11.34 thou/uL (2.00-7.15); NEUT% 86.7 % (42-76); RED BLOOD COUNT 3.53 mill/uL (4.20-5.60); RED CELL DISTRI WIDTH 14.3 % (11.5-15.5)
[2022-05-18 06:03] LABS: ALBUMIN 3.3 g/dL (3.2-5.0); CREATININE 1.4 mg/dL (0.5-1.0); MAGNESIUM 2.2 mg/dL (1.6-2.3); TOTAL PROTEIN 5.8 g/dL (6.3-8.2)
[2022-05-18 06:04] LABS: BILIRUBIN, TOTAL 0.2 mg/dL (0.02-1.3)
--- NOTE | 2022-05-18 06:22 | NUR ---
PT O2 SAT ON 8L O2 NOT MAINTING ABOVE 88%. RESPIRATORY THERAPY INCREASED O2 TO 10L HIGH FLOW. PT O2 SAT AT 88%. PT HAS WET, NON PRODUCTIVE PRESENT AND COMPLAINS OF FEELING CONGESTED. NO S/S OF DISTRESS. INFORMED BENZENE OPERATOR OF PT STATUS. T.O.R.B FOR LASIX 40MG X1 IV. AWAITING PHARMACY APPROVAL.
--- NOTE | 2022-05-18 07:32 | NUR ---
PT RESTING IN SEMI FOWLERS POSITION. PT A/OX3 ASSESSMENT AND VS COMPLETED. HEART RHYTHM ON TELE. RESPIRAITONS ON 10L HIGH FLOW NC. PT SATS 86% PT ABLE TO USE I.S. NO DISTRESS NOTED WITH PT. PT DENIES ADDITIONAL NEEDS AT THE TIME ALL SAFETY PRECAUTIONS IN PLACE WITH CALL LIGHT INREACH.
--- NOTE | 2022-05-18 09:40 | NUR ---
PT RESTING IN SEMIFOWLERS. AIR DEFENSE SPECIALIST ORDER FOR ROA CATH PT LASIX GIVEN FOR WET LUNGS. PT RETENTION AFTER LASIX STATED DID URINATE PT ON PURE WICK . PT PURE WICK ACCOMIDATED,PT OUTPUTING PT BLADDER SCANNED. >999. PER SCAN ORDER FOR ROA INITATED PT TOLERATED WELL OUTPUT IMMEDIATETLY. TO BE DOCUMENTED ORDER TO TRANSFER TO ICU PER MD ORDER.
--- NOTE | 2022-05-18 09:49 | NUR ---
Attempted treatment this am. She was in bed with nursing just finishing welch insert. She was on 10 L 02 with sats 89%. Spoke with Dr. Armenta, hold treatment, pt for transfer to ICU
--- NOTE | 2022-05-18 09:50 | NUR ---
Pt arrived to unit via stretcher - report received from PHYLICIA - pt satting 91% on 10l hiflo - no s/s distress - denies any pain or needs - call light in reach
--- NOTE | 2022-05-18 10:15 | NUR ---
pt transfered to icu report given to FELIX BAILEY.
--- NOTE | 2022-05-18 13:01 | NUR ---
Pt eating lunch still - denies any pain or needs - no s/s distress on 10L hiflo oxygen - call light in reach
--- NOTE | 2022-05-18 15:46 | NUR ---
Pt visiting with daughter - no concerns at this time - no s/s distress on 10L HIFLO - call light in reach
--- NOTE | 2022-05-18 17:25 | NUR ---
Pt awake and alert in bed resting - denies pain or any needs at this time - call light in reach - no s/s distress on 8L
--- NOTE | 2022-05-18 17:30 | NUR ---
O2 SAT ON 10L 98%. DECREASED TO 8L.
--- NOTE | 2022-05-18 19:30 | NUR ---
awake. denies resp distress. o2 cont per hfnc. coordinate measuring machine programmer shows sinus rhythm pvcs. #22 rfa saline lock. po fluids taken fair. welch cath in place. urine clear yellow. fall precutions cont. daughter @ bedside.
--- NOTE | 2022-05-18 22:00 | NUR ---
eyes closed. no distress. o2 cont.
[2022-05-19] VITALS (12 sets, daily range): BP systolic 105–142; BP diastolic 58–110
--- NOTE | 2022-05-19 00:01 | NUR ---
eyes closed. no distress. cardiac care nurse shows sinus rhythm pvcs.
--- NOTE | 2022-05-19 02:00 | NUR ---
resting quietly. resps even & unlabored. no apparent distress.
--- NOTE | 2022-05-19 04:40 | NUR ---
urine spec collected & sent to lab.
[2022-05-19 06:45] LABS: IMMATURE GRANULOCYTES 3.1 % (0.0-5.0); LYMPH% 5.7 % (15-41); MEAN CELL VOLUME 92.2 fL CALC (80.0-100.0); MEAN CORPUSCULAR HGB 28.8 pG CALC (26.0-32.0); MEAN CORPUSCULAR HGB CONC 31.3 g/dL CAL (32.0-36.0); MONO% 4.7 % (2-13); NEUT# 9.82 thou/uL (2.00-7.15); NEUT% 86.5 % (42-76); RED BLOOD COUNT 3.47 mill/uL (4.20-5.60); RED CELL DISTRI WIDTH 13.9 % (11.5-15.5)
[2022-05-19 06:45] LABS: URINE BILIRUBIN - DIPSTICK NEGATIVE (NEGATIVE); URINE BLOOD DIPSTICK SMALL (NEGATIVE); URINE COLOR YELLOW; URINE GLUCOSE - DIPSTICK NEGATIVE (NEGATIVE); URINE KETONE NEGATIVE (NEGATIVE); URINE PH 5.5 (4.5-8.0); URINE PROTEIN - DIPSTICK NEGATIVE (NEG-TRACE); URINE UROBILINOGEN - DIPSTICK 0.2 E.U./dL (0.2)
[2022-05-19 07:08] LABS: ALBUMIN 2.8 g/dL (3.2-5.0); BILIRUBIN, TOTAL 0.2 mg/dL (0.02-1.3); CREATININE 1.3 mg/dL (0.5-1.0); MAGNESIUM 2.1 mg/dL (1.6-2.3); TOTAL PROTEIN 5.1 g/dL (6.3-8.2)
[2022-05-19 07:31] LABS: URINE NITRITE - DIPSTICK NEGATIVE (Negative)
[2022-05-19 07:33] LABS: URINE BACTERIA FEW hpf; URINE EPITHELIAL CELLS FEW EPI/hpf (0-FEW); URINE LEUK ESTERASE NEGATIVE (NEGATIVE)
--- NOTE | 2022-05-19 07:38 | NUR ---
Report received from lieutenant shift supervisor - pt observed in bed with eyes closed - no s.s distress on 6L hiflo NC - call light in reach
--- NOTE | 2022-05-19 09:00 | NUR ---
No new orders - pt visiting with daughter - stable on 6l - call light in reach
--- NOTE | 2022-05-19 11:11 | NUR ---
Pt up to chair visiting daughter - denies any needs - no s.s distress on 6L via NC hiflo - call light in reach
--- NOTE | 2022-05-19 13:53 | NUR ---
Pt denies any pain or needs at this time - call light in reach
--- NOTE | 2022-05-19 17:05 | NUR ---
PT IN BED WITH EYES CLOSED - VSS - DENIES ANY PAIN - KEEPS TAKING BP CUFF OFF SHE SAID IT STOPS HER FROM BEING ABLE TO BLOW HER NOSE - I EDUCATED ON IMPORTANCE OF VS - CALL LIGHT IN REACH
--- NOTE | 2022-05-19 20:30 | NUR ---
awake. denies distress. o2 cont per nc. personnel monitor shows sinus rhythm ivcd. #22 rfa saline lock. po fluids taken well. welch cath in place. urine clear yellow. fall precautions cont.
--- NOTE | 2022-05-19 22:00 | NUR ---
eyes closed. no distress. monitor worker shows sinus rhythm.
[2022-05-20] VITALS: BP 125/63
--- NOTE | 2022-05-20 00:01 | NUR ---
eyes closed. no apparent distress. o2 cont.
--- NOTE | 2022-05-20 02:00 | NUR ---
resting quietly. resps even & unlabored. no apparent distress. o2 cont.
[2022-05-20 04:00] VITALS: BP 120/61
--- NOTE | 2022-05-20 04:50 | NUR ---
lab here. blood drawn.
[2022-05-20 05:41] LABS: HEMOGLOBIN 9.9 g/dl (12.0-16.0); MEAN CELL VOLUME 92.5 fL CALC (80.0-100.0); MEAN CORPUSCULAR HGB 28.6 pG CALC (26.0-32.0); MEAN CORPUSCULAR HGB CONC 30.9 g/dL CAL (32.0-36.0); RED BLOOD COUNT 3.46 mill/uL (4.20-5.60); RED CELL DISTRI WIDTH 13.9 % (11.5-15.5)
[2022-05-20 06:07] LABS: ALBUMIN 2.9 g/dL (3.2-5.0); CREATININE 1.2 mg/dL (0.5-1.0); MAGNESIUM 2.1 mg/dL (1.6-2.3); POTASSIUM 3.9 mmol/l (3.5-5.1); TOTAL PROTEIN 5.2 g/dL (6.3-8.2)
[2022-05-20 06:13] LABS: BILIRUBIN, TOTAL 0.3 mg/dL (0.02-1.3)
--- NOTE | 2022-05-20 08:35 | NUR ---
PT SEEN AWAKE, ALERT, ORIENTED X 3. BREAKFAST PROVIDED, PT EATING NOW. NO DISTRESS NOTED.
[2022-05-20 12:01] VITALS: BP 123/64
--- NOTE | 2022-05-20 13:49 | NUR ---
PT SEEN AT REST IN THE BED WATCHING TV. NO CHANGE IN RESPIRATORY STATUS, NO DISTRESS, NO SHORTNESS OF BREATH.
[2022-05-20 16:00] VITALS: BP 105/55
--- NOTE | 2022-05-20 16:32 | NUR ---
PT ENJOYS VISITORS THIS AFTERNOON, NO COMPLAINT OF SHORTNESS OF BREATH OR OTHERWISE.
[2022-05-20 20:01] VITALS: BP 105/58
[2022-05-20 21:27] VITALS: BP 92/55
--- NOTE | 2022-05-20 21:44 | NUR ---
PATIENT AWAKE, ALERT AND ORIENTED. SITTING UP IN BED WATCHING TV. ASSESSMENT COMPLETE. ROA TO GRAVITY; CLEAR, YELLOW URINE NOTED. C/O BACK PAIN 10, BP 92/55. PATIENT GIVEN SCHEDULED MEDS AND REPOSITIONED FOR COMFORT. NO FURTHER CONCERNS EXPRESSED AT THIS TIME. CALL LIGHT WITHIN REACH.
[2022-05-21] VITALS (7 sets, daily range): BP systolic 99–127; BP diastolic 49–73
--- NOTE | 2022-05-21 00:05 | NUR ---
RESTING QUIETLY EYES CLOSED. ROA TO GRAVITY, PATENT. NO DISTRESS NOTED. CALL LIGHT WITHIN REACH.
--- NOTE | 2022-05-21 04:40 | NUR ---
RESTING QUIELTY EYES CLOSED. NO DISTRESS NOTED. CALL LIGHT WITHIN REACH.
[2022-05-21 04:53] LABS: BASO% 0.1 % (0-3); HEMATOCRIT 33.5 % (37.0-47.0); HEMOGLOBIN 10.5 g/dl (12.0-16.0); IMMATURE GRANULOCYTES 4.9 % (0.0-5.0); LYMPH% 4.7 % (15-41); MEAN CELL VOLUME 92.8 fL CALC (80.0-100.0); MEAN CORPUSCULAR HGB 29.1 pG CALC (26.0-32.0); MEAN CORPUSCULAR HGB CONC 31.3 g/dL CAL (32.0-36.0); MONO% 3.8 % (2-13); NEUT# 11.87 thou/uL (2.00-7.15); NEUT% 86.5 % (42-76); RED BLOOD COUNT 3.61 mill/uL (4.20-5.60)
[2022-05-21 05:08] LABS: CREATININE 1.2 mg/dL (0.5-1.0); MAGNESIUM 2.1 mg/dL (1.6-2.3); POTASSIUM 3.6 mmol/l (3.5-5.1)
--- NOTE | 2022-05-21 08:00 | NUR ---
Patient lying in bed. Denies any pain at this time. Assessment completed. VSS. No s/s of distress. Will continue to monitor.
--- NOTE | 2022-05-21 08:30 | NUR ---
Dr. Su rounding at bedside. Patient has a nonproductive cough, Sharlene requested chest physiotherapy. Patient is to be moved to chair as soon as possible. Will continue to monitor.
--- NOTE | 2022-05-21 10:00 | NUR ---
Patient sitting in chair. Family member at bedside. Patient denies any pain at this time. No s/s of distress. Call light on bed within patient's reach. Breathing unlabored. Will continue to monitor.
--- NOTE | 2022-05-21 12:00 | NUR ---
Patient up to chair. Visitors at bedside. Patient denies any pain at this time. VSS. No s/s of distress. Call light on bed next to chair. Will continue to monitor.
--- NOTE | 2022-05-21 14:09 | NUR ---
Patient sitting in chair. Patient denies any pain at this time. VSS. Will continue to monitor.
--- NOTE | 2022-05-21 16:00 | NUR ---
Patient lying in bed. No s/s of distress. Patient denies any pain at this time. VSS. Breathing unlabored. Bed in low position, call light next to R hand. Will continue to monitor.
--- NOTE | 2022-05-21 17:50 | NUR ---
NEB TX FOLLOWED BY CPT VIA PERCUSSOR. PT TOLERATED WELL. LOOSE NON PRODUCTIVE COUGH.
--- NOTE | 2022-05-21 18:00 | NUR ---
Patient sitting up in bed. Family member at bedside. Patient denies any pain at this time. VSS. Call light next to R hand. No s/s of distress. Bed in low position.
--- NOTE | 2022-05-21 19:27 | NUR ---
RECEIVED PATIENT IN BED. FAMILY AT BED SIDE. REMAIN ON 5L NC .NO S/S OF DISTRESS NOTED. DENIES ANY PAIN OR DISCOMFORT. CALL LIGHT IN REACH.
--- NOTE | 2022-05-21 22:35 | NUR ---
PT ARRIVED TO MS2 VIA BED ACCOMPANIED BY FLOORHAND. PT ALERT AND ORIENTED X4, RESP EVEN AND UNLABORED. NO SIGNS OF DISTRESS NOTED, DISCUSSED POC, ORIENTED PT TO ROOM AND CALL LIGHT, VERBALIZED UNDERSTANDING. PT IS ON HI CARLOS AT 5L NC HUMIDIFIED. ROA DRAINING TO GRAVITY. IV SL FLUSHED WELL. ASSESSMENT COMPLETED, CALL LIGHT IN REACH,CONTINUE TO MONITOR.
--- NOTE | 2022-05-22 | NUR ---
PT RESTING IN BED WITH EYES CLOSED, NO SIGNS OF DISTRESS NOTED, RESP EVEN AND UNLABORED. CALL LIGHT IN REACH,CONTINUE TO MONITOR.
[2022-05-22 01:00] VITALS: BP 105/51
[2022-05-22 04:12] VITALS: BP 117/67
--- NOTE | 2022-05-22 06:00 | NUR ---
PT RESTING IN BED, DISCUSSED IV SOLUMEDROL, NOTED PT O2 91% ON 5L INCREASED TO 6L NC SPO2 INCREASED TO 95%. PT VOICES NO NEEDS OR COMPLAINTS AT THIS TIME. CALL LIGHT IN REACH,CONTINUE TO MONITOR.
[2022-05-22 06:11] VITALS: BP 118/67
--- NOTE | 2022-05-22 07:48 | NUR ---
RECEIVE REPORT FROM BARBARA HALLMAN.
--- NOTE | 2022-05-22 08:00 | NUR ---
Patient alert and oriented x3. No distress or pain observe at this time. Assessment head-to toe complete. Patient is educated aboud medications and nursing plan for today. Patient refer understand. Safety and fall precautions in place. Call light withn in reach.
[2022-05-22 09:04] LABS: BASO% 0.1 % (0-3); HEMATOCRIT 34.3 % (37.0-47.0); HEMOGLOBIN 10.6 g/dl (12.0-16.0); IMMATURE GRANULOCYTES 4.4 % (0.0-5.0); LYMPH% 3.5 % (15-41); MEAN CELL VOLUME 92.5 fL CALC (80.0-100.0); MEAN CORPUSCULAR HGB 28.6 pG CALC (26.0-32.0); MEAN CORPUSCULAR HGB CONC 30.9 g/dL CAL (32.0-36.0); MONO% 3.3 % (2-13); NEUT# 10.91 thou/uL (2.00-7.15); NEUT% 88.7 % (42-76); RED BLOOD COUNT 3.71 mill/uL (4.20-5.60); RED CELL DISTRI WIDTH 14.2 % (11.5-15.5)
[2022-05-22 09:20] LABS: ALBUMIN 2.8 g/dL (3.2-5.0); BILIRUBIN, TOTAL 0.3 mg/dL (0.02-1.3); CREATININE 1.2 mg/dL (0.5-1.0); POTASSIUM 3.6 mmol/l (3.5-5.1)
--- NOTE | 2022-05-22 12:00 | NUR ---
PATIENT RESTING IN BED. STABLE AT THIS TIME. SAFETY AND FALL PRECAUTIONS IN PLACE. CALL LIGHT WITHIN IN REACH.
[2022-05-22 14:35] VITALS: BP 100/54
[2022-05-22 18:51] VITALS: BP 146/74
--- NOTE | 2022-05-22 20:00 | NUR ---
RECEIVED REPORT FROM LEO NAVA. PT RESTING ON BED HIGH FOWLERS; A&O X3. EVEN AND UNLABORED RERSPIRATIONS; O2 @ 5L HUMIDIFIED VIA NC IN PLACE. TELEMETRY IN PLACE. IV SITE FLUSHED; #20G TO RT FA, HEALTHY AND PATENT. ROA IN PLACE; TO GRAVITY WITH CLEAR, YELLOW URINE. SAFETY PRECAUTIONS IN PLACE WITH CALL LIGHT IN REACH.
[2022-05-22 21:51] VITALS: BP 132/69
[2022-05-23 00:28] VITALS: BP 120/66
--- NOTE | 2022-05-23 00:30 | NUR ---
PT RESTING ON BED WITH EYES CLOSED. NO DISTRESS OR PAIN NOTED. VS COMPLETED. NO VOICED NEEDA AT THIS TIME. SAFETY PRECAUTIONS IN PLACE WITH CALL LIGHT IN REACH.
--- NOTE | 2022-05-23 04:00 | NUR ---
PT RESTING ON BED, SUPINE POSITION. NO SIGNS OF DISTRESS OR PAIN NOTED. IV SITE HEALTHY AND PATENT. ROA IN PLACE; TO GRAVITY WITH CLEAR, YELLOW URINE. SAFETY PRECAUTIONS IN PLACE WITH CALL LIGHT IN REACH.
[2022-05-23 04:51] VITALS: BP 153/79
[2022-05-23 05:51] LABS: BASO% 0.1 % (0-3); HEMATOCRIT 33.3 % (37.0-47.0); HEMOGLOBIN 10.5 g/dl (12.0-16.0); IMMATURE GRANULOCYTES 2.9 % (0.0-5.0); LYMPH% 3.6 % (15-41); MEAN CORPUSCULAR HGB CONC 31.5 g/dL CAL (32.0-36.0); MONO% 5.7 % (2-13); NEUT# 13.32 thou/uL (2.00-7.15); NEUT% 87.7 % (42-76); RED BLOOD COUNT 3.62 mill/uL (4.20-5.60); RED CELL DISTRI WIDTH 13.9 % (11.5-15.5)
[2022-05-23 06:06] LABS: ALBUMIN 2.7 g/dL (3.2-5.0); BILIRUBIN, TOTAL 0.2 mg/dL (0.02-1.3); CREATININE 1.1 mg/dL (0.5-1.0); POTASSIUM 3.6 mmol/l (3.5-5.1); TOTAL PROTEIN 5.1 g/dL (6.3-8.2)
[2022-05-23 06:10] VITALS: BP 146/79
--- NOTE | 2022-05-23 07:00 | NUR ---
RECEIVE REPORT FROM KORI HALLMAN.
--- NOTE | 2022-05-23 08:00 | NUR ---
Alert and oriented patient x3. No respiratory distress or pain is reported or observed at the time of writing this note. Assessment head-to toe complete. Patient connected to telemetry with good heart rate at the time of this note. Oxygen at 5 l/ NC. Patient is educated aboud medications and nursing plan for today. Patient refer understand. Safety and fall precautions in place. Call light within in reach.
[2022-05-23 10:41] VITALS: BP 126/65
--- NOTE | 2022-05-23 12:00 | NUR ---
Patient resting in bed. stable at this time. Safety and fall precautions in place. Call light within in reach.
[2022-05-23 14:50] VITALS: BP 97/53
--- NOTE | 2022-05-23 16:00 | NUR ---
PATIENT STABLE AT THIS TIME. ACCOMPANIED FOR FAMIY MEMBERS IN THE ROOM.
[2022-05-23 18:41] VITALS: BP 100/49
--- NOTE | 2022-05-23 20:00 | NUR ---
PATIENT SITTING UP IN BED WITH O2 VIA NASAL CANNULA IN PLACE AT 5LPM. O2 SAT IS 93% AT THIS TIME. TELE MONITOR IN PLACE WITH LAST READING [id number]. ROA PATENT AND DRAINING YELLOW URINE. PATIENT WITH LOOSE SOMETIMES PRODUCTIVE COUGH-GREEN SPUTUM PER PATIENT. SALINE LOCK PATENT RIGHT FOREARM. SAFETY PRECAUTIONS REINFORCED. CALL LIGHT IN REACH. WILL CONT TO MONITOR.
--- NOTE | 2022-05-24 | NUR ---
PATIENT SITTING UP IKN BED WITH O2 VIA NASAL CANNULA IN PLACE AT 5LPM. EYES ARE CLOSED. RESPS ARE EVEN AND UNLABORED. TELE MONITOR IN PLACE-LAST READING WAS [id number]. ROA CATH PATENT AND DRAINING YELLOW URINE. CALL LIGHT IN REACH. WILL CONT TO MONITOR.
[2022-05-24 00:33] VITALS: BP 121/58
--- NOTE | 2022-05-24 04:25 | NUR ---
PATIENT SITTING UP IN BED WITH O2 VIA NASAL CANNULA IN PLACE AT 5LPM. EYES ARE CLOSED. RESPS ARE EVEN AND UNLABORED. TELE MONITOR IN PLACE. ROA PATENT AND DRAINING DAYNA URINE. CALL LIGHT IN REACH. WILL CONT TO MONITOR.
[2022-05-24 04:32] VITALS: BP 124/60
[2022-05-24 05:29] LABS: BASO% 0.1 % (0-3); HEMATOCRIT 33.3 % (37.0-47.0); HEMOGLOBIN 10.5 g/dl (12.0-16.0); IMMATURE GRANULOCYTES 2.3 % (0.0-5.0); LYMPH% 2.7 % (15-41); MEAN CORPUSCULAR HGB CONC 31.5 g/dL CAL (32.0-36.0); MONO% 4.5 % (2-13); NEUT# 17.85 thou/uL (2.00-7.15); NEUT% 90.4 % (42-76); RED BLOOD COUNT 3.62 mill/uL (4.20-5.60); RED CELL DISTRI WIDTH 14.2 % (11.5-15.5)
[2022-05-24 05:43] LABS: ALBUMIN 2.8 g/dL (3.2-5.0); BILIRUBIN, TOTAL 0.2 mg/dL (0.02-1.3); CREATININE 1.1 mg/dL (0.5-1.0); MAGNESIUM 2.2 mg/dL (1.6-2.3); POTASSIUM 3.7 mmol/l (3.5-5.1); TOTAL PROTEIN 5.1 g/dL (6.3-8.2)
--- NOTE | 2022-05-24 06:50 | NUR ---
CPT DONE AFTER NEB. POX 91% ON 5L N/C POST EMILY. UNABLE TO TITRATE O2.
[2022-05-24 06:59] VITALS: BP 111/52
--- NOTE | 2022-05-24 07:47 | NUR ---
RECEIVE REPORT FROM HEIDI BAILEY.
--- NOTE | 2022-05-24 12:00 | NUR ---
PATIENT RESTING IN BED. ER CALL FOR CHANGED IN THE HR. NOTIFY TO RADHAGisselle WEBB. ORDER FOR EKG IS INMEDIALLY DONE. PATIENT STABLE ASYMPTOMATIC.
--- NOTE | 2022-05-24 16:31 | NUR ---
PATIENT SITTING UP IN BED WITH O2 VIA NASAL CANNULA IN PLACE AT 5LPM. ACCOMPANIED FOR FAMILY AT BED SIDE. RESPS ARE EVEN AND UNLABORED. TELE MONITOR IN PLACE. ROA PATENT AND DRAINING YELLOW URINE. CALL LIGHT IN REACH. WILL CONT TO MONITOR.
[2022-05-24 16:53] VITALS: BP 99/51
[2022-05-24 16:54] VITALS: BP 104/47
[2022-05-24 18:49] VITALS: BP 102/57
--- NOTE | 2022-05-24 19:45 | NUR ---
RECEIVED REPORT FROM DAYSOHFT NURSE. PT NOTED SITTING UP HIGH FOWLERS IN BED. VISITOR AT BEDSIDE WITH DOG ON LAP. PT IS A/OX3. DENIES ANY PAIN AT THIS TIME. NASAL CANNULA IN PLACE. EDUCATED PT ON PLAN OF CARE FOR TONIGHT. FABIENNE LIGHT WITHIN REACH AND SAFETY PRECAUTIONS IN PLACE
[2022-05-25] VITALS (8 sets, daily range): BP systolic 108–141; BP diastolic 51–76
--- NOTE | 2022-05-25 | NUR ---
PT LAYING FOWLERS IN BED SLEEPING. NASAL CANNULA IN PLACE. NO S/S OF DISTRESS. CALL LIGHT WITHIN REACH AND SAFETY PRECAUTIONS IN PLACE.
--- NOTE | 2022-05-25 04:00 | NUR ---
LAB IN ROOM WITH PT AT THIS TIME. PT NOTED LAYING FOWLERS IN BED. NASAL CANNULA IN PLACE. PT DENIES ANY PAIN AT THIS TIME. CALL LIGHT WITHIN REACH AND SAFETY PRECAUTIONS IN PLACE.
[2022-05-25 05:53] LABS: HEMATOCRIT 32.7 % (37.0-47.0); HEMOGLOBIN 10.2 g/dl (12.0-16.0); IMMATURE GRANULOCYTES 3.4 % (0.0-5.0); MEAN CELL VOLUME 91.6 fL CALC (80.0-100.0); MEAN CORPUSCULAR HGB 28.6 pG CALC (26.0-32.0); MEAN CORPUSCULAR HGB CONC 31.2 g/dL CAL (32.0-36.0); MONO% 3.8 % (2-13); NEUT# 18.63 thou/uL (2.00-7.15); NEUT% 90.8 % (42-76); RED BLOOD COUNT 3.57 mill/uL (4.20-5.60); RED CELL DISTRI WIDTH 14.3 % (11.5-15.5)
[2022-05-25 06:07] LABS: ALBUMIN 2.7 g/dL (3.2-5.0); ALKALINE PHOSPHATASE 48 u/l (38-126); ANION GAP 6 (6-22 (CALC)); BUN 35 mg/dL (8-23); BUN/CREATININE RATIO 34 (12-20 (CALC)); CARBON DIOXIDE 33 mmol/l (22-30); CHLORIDE 95 mmol/l (95-108); GFR FOR AFR.AMER. > 60 ML/MIN (>=60 (CALC)); GFR OTHER RACES 53 ML/MIN (>=60 (CALC)); POTASSIUM 4.2 mmol/l (3.5-5.1); SGOT/AST 19 u/l (9-36); SODIUM 130 mmol/l (137-146); TOTAL PROTEIN 5.2 g/dL (6.3-8.2)
[2022-05-25 06:08] LABS: BILIRUBIN, TOTAL 0.3 mg/dL (0.02-1.3)
--- NOTE | 2022-05-25 08:00 | NUR ---
PT SITTING UP IN CHAIR AT BEDSIDE. AWAKE ALERT AND ORIENTED, NO C/O PAIN AT THIS TIME. IV SITE TO RFA, INTACT AND CLEAN. TELE ON WITH LEADS ATTACHED. ROA INTACT WIDRAINING CLEAR YELLOW URINE. O2 AT 5 LITERS ON VIA NC, TOLERATING WELL, LOWERED O2 TO 3 LITERS, PT IS DOING WELL SATS @ 92 %. CALL LIGHT WITHIN REACH, ALL SAFETY MEASURES IN PLACE.
--- NOTE | 2022-05-25 10:00 | NUR ---
ORDER ENTERED TO REMOVE ROA CATH. BAG EMPTIED WITH 650 ML IN BAG. REMOVED, PT TOLERATED WELL.
--- NOTE | 2022-05-25 12:00 | NUR ---
PT SITTING U PIN CHAIR AT BEDSIDE, EATING LUNCH WITH DAUGHTER AT BEDSIDE. PT HAS NO C/O PAIN. NO CHANGE IN STATUS AT THIS TIME.
--- NOTE | 2022-05-25 16:00 | NUR ---
PT LAYING IN BED RESTING. PT HAS NO C/O PAIN AT THIS ITME. PT HAS NO VOIDED AND HAS NO URGE TO URINATE AT THIS TIME. WILL CONT TO MONITOR.
--- NOTE | 2022-05-25 16:00 | NUR ---
PT SITTING UP IN CHAIR AT BEDSIDE EATING LUNCH. NO CHANGE IN STATUS AT THIS TIME. PT HAS NOT VOIDED AT THIS TIME, WILL CONTINUE TO MONITOR
--- NOTE | 2022-05-25 18:15 | NUR ---
PT HAS NOT VOIDED SINCE ROA REMOVED. BLADDER SCAN DONE WITH WITH 770ML NOTED 6 HOURS POST ROA REMOVAL. NOTIFIED ALINA AND SHE ORDRED ROA PLACEMENT. ROA PLACED USING STERILE TECHNIQUE WITH 650ML URINE OUTOUT.
--- NOTE | 2022-05-25 22:38 | NUR ---
PT DAUGHTER AT BEDSIDE, TOLRATED SNACKS AND COFFEE WELL, CALL LIGHT WITHIN REACHED, WILL CONT TO MONITOR
--- NOTE | 2022-05-26 02:32 | NUR ---
PT RESTING VITAL WITHIN NORMAL RANGE, BED LOW LEVEL, CALL LIGHT WITHIN REACHED, WILL CONT TO MONITOR
[2022-05-26 03:50] VITALS: BP 141/74
[2022-05-26 05:47] LABS: BASO% 0.1 % (0-3); HEMATOCRIT 30.1 % (37.0-47.0); HEMOGLOBIN 9.4 g/dl (12.0-16.0); IMMATURE GRANULOCYTES 2.3 % (0.0-5.0); LYMPH% 2.9 % (15-41); MEAN CELL VOLUME 92.3 fL CALC (80.0-100.0); MEAN CORPUSCULAR HGB 28.8 pG CALC (26.0-32.0); MEAN CORPUSCULAR HGB CONC 31.2 g/dL CAL (32.0-36.0); MONO% 3.4 % (2-13); NEUT# 16.16 thou/uL (2.00-7.15); NEUT% 91.3 % (42-76); RED BLOOD COUNT 3.26 mill/uL (4.20-5.60); RED CELL DISTRI WIDTH 14.3 % (11.5-15.5)
[2022-05-26 05:57] LABS: ALBUMIN 2.5 g/dL (3.2-5.0); ALKALINE PHOSPHATASE 49 u/l (38-126); ANION GAP 7 (6-22 (CALC)); BILIRUBIN, TOTAL 0.2 mg/dL (0.02-1.3); BUN 33 mg/dL (8-23); BUN/CREATININE RATIO 33 (12-20 (CALC)); CARBON DIOXIDE 31 mmol/l (22-30); CHLORIDE 97 mmol/l (95-108); GFR FOR AFR.AMER. > 60 ML/MIN (>=60 (CALC)); GFR OTHER RACES 53 ML/MIN (>=60 (CALC)); POTASSIUM 4.4 mmol/l (3.5-5.1); SGOT/AST 18 u/l (9-36); SODIUM 130 mmol/l (137-146); TOTAL PROTEIN 4.6 g/dL (6.3-8.2)
[2022-05-26 06:31] VITALS: BP 119/62
--- NOTE | 2022-05-26 08:00 | NUR ---
PT UP IN CHAIR AT BEDSIDE, ALERT AND OREINTED X 3, PT HAS NO C/O PAIN AT THIS TIME. TELE ON WITH ALL LEADS ATTACHED. IV TO THE RFA, NOT FLUSHING. NEW IV SITE STARTED TO LFA BY LEO XAVIER. ROA CATH INTACT DRAINING CLEAR, YELLOW URINE. PT HAS CALL LIGHT WITHIN REACH AND ALL SAFETY MEASURES IN PLACE AT THIS TIME.
[2022-05-26 09:38] VITALS: BP 119/62
--- NOTE | 2022-05-26 12:00 | NUR ---
PT SITTINING UP IN CHAIR AT BEDSIDE EATING LUNCH. FAMILY IN RM. PT HAS NO C/O PAIN. NO CHANGE IN STATUS AT THIS TIME. CALL LIGHT WITHIN REACH.
[2022-05-26] MEDS ORDERED: PREDNISONE10 MG PO (13:39)
[2022-05-26] MEDS ORDERED: OMNICEF300 MG PO (13:40)
--- NOTE | 2022-05-26 15:09 | NUR ---
Discharge instructions given. Patient verbalizes understanding of same. Discharged in stable condition via Wheelchair to Home with family. All belongings sent with pt.
== END 2022-05-26 15:15 | DRG 190 ==
LOC: ED 15:09 → ED-I 20:04 → ED 21:12 → MS2 21:13 → ICU 05-18 10:00 → MS2 05-21 22:35
PROVIDERS: Emergency Medicine; Internal Medicine; Nurse Practitioner Family; ADMIT Internal Medicine; ATTEND Internal Medicine
PROC: 0T9B70Z Drainage of Bladder with Drainage Device, Via Natural or Artificial Opening (ICD-10-PCS; principal; 2022-05-18)
DX: J44.1 Chronic obstructive pulmonary disease with (acute) exacerbation (principal); J18.9 Pneumonia, unspecified organism; J96.21 Acute and chronic respiratory failure with hypoxia; E87.1 Hypo-osmolality and hyponatremia; M48.50XA Collapsed vertebra, not elsewhere classified, site unspecified, initial encounter for fracture; I48.20 Chronic atrial fibrillation, unspecified; I10 Essential (primary) hypertension; R33.9 Retention of urine, unspecified; K58.2 Mixed irritable bowel syndrome; E78.5 Hyperlipidemia, unspecified; T41.5X6A Underdosing of therapeutic gases, initial encounter; T50.916A Underdosing of multiple unspecified drugs, medicaments and biological substances, initial encounter; Z96.82 Presence of neurostimulator; Z87.891 Personal history of nicotine dependence; Z79.01 Long term (current) use of anticoagulants; Z91.128 Patient's intentional underdosing of medication regimen for other reason; Z92.3 Personal history of irradiation